=== PATIENT | male | born 1995 | race Hispanic/Latino ===

== ENCOUNTER 2017-08-13 15:11 | Inpatient (IN) | payer SELFPAY ==
[~2017-08-13] VITALS: Ht 165.1 cm; Wt 70.2 kg
[2017-08-13 15:33] LABS: HEMATOCRIT 43.1 % (38.0-50.0); HEMOGLOBIN 14.7 G/DL (12.5-16.6); MCH 28.4 PG (29.0-34.0); MCHC 34.1 G/DL (30.0-36.0); MCV 83.4 FL (86-99); PLATELET COUNT 240 K/uL (156-360); RBC DIS.WIDTH-CV 13.1 % (11.8-14.6); RBC DIS.WIDTH-SD 39.8 % (39-53); RED BLOOD COUNT 5.17 M/uL (4.00-5.50); WHITE BLOOD COUNT 7.3 K/uL (4.1-10.2)
[2017-08-13 15:43] LABS: CHLORIDE 108 mEq/L (99-109); POTASSIUM 3.9 mEq/L (3.7-5.4); SODIUM 144 mEq/L (136-147)
[2017-08-13 15:44] LABS: GLUCOSE 100 mg/dL (70-99)
[2017-08-13 15:48] LABS: CREATININE 0.8 mg/dL (0.6-1.3)
[2017-08-13 15:49] LABS: UREA NITROGEN (BUN) 16 mg/dL (9-23)
[2017-08-13 15:51] LABS: GFR ESTIMATE (CALCULATED) > 59 mL/min/ (58.99-99999)
[2017-08-13 16:31] LABS: APPEARANCE CLOUDY ((CLEAR)); BILIRUBIN NEGATIVE; BLOOD NEGATIVE; COLOR YELLOW ((YELLOW)); GLUCOSE (STRIP) NEGATIVE; KETONES NEGATIVE; LEUKOCYTES NEGATIVE; NITRITE NEGATIVE; PROTEIN (STRIP) NEGATIVE
[2017-08-13 16:46] LABS: COCAINE NEGATIVE (150 ng/mL); METHAMPHETAMINE NEGATIVE (500 ng/mL); PHENCYCLIDINE NEGATIVE (25 ng/mL); THC CANNABINOIDS NEGATIVE (50 ng/mL)
[2017-08-13 16:47] LABS: AMPHETAMINE NEGATIVE (500 ng/mL); BARBITURATES NEGATIVE (200 ng/mL); BENZODIAZEPINES NEGATIVE (150 ng/mL); BUPRENORPHINE NEGATIVE (10 ng/mL); METHADONE NEGATIVE (200 ng/mL); OPIATES (MORPHINE) NEGATIVE (100 ng/mL); OXYCODONE NEGATIVE (100 ng/mL); PROPOXYPHENE NEGATIVE (300 ng/mL); TRICYCLIC ANTIDEPRESSANTS NEGATIVE (300 ng/mL)
[2017-08-13 18:01] VITALS: BP 117/61
[2017-08-13 18:08] VITALS: BP 117/61
[2017-08-13 18:18] LABS: AMORPHOUS PHOSPHATE CRYSTALS 3+; BACTERIA NONE SEEN /HPF; EPITHELIAL CELLS NONE SEEN /HPF; MUCUS NONE SEEN /LPF; RED BLOOD CELLS NONE SEEN /HPF (0-5); WHITE BLOOD CELLS NONE SEEN /HPF (0-5)
[2017-08-14 07:53] VITALS: BP 107/52
[2017-08-14 15:43] VITALS: BP 114/58
[2017-08-15 08:04] VITALS: BP 108/53
[2017-08-15 16:06] VITALS: BP 122/60
[2017-08-16 08:15] VITALS: BP 113/49
[2017-08-16 16:00] VITALS: BP 101/56
[2017-08-17 08:07] VITALS: BP 111/54
[2017-08-17] MEDS ORDERED: RISPERDAL2 MG PO (10:40)
== END 2017-08-17 12:19 | disposition home or self-care (01) | DRG 885 ==
LOC: EME 15:11 → EDOF 15:50 → 1WEST 15:50 → ENRESERV 17:56 → 1WEST 17:56
PROVIDERS: Nurse Practitioner Family
DX: F23 Brief psychotic disorder (principal); Z81.8 Family history of other mental and behavioral disorders
CPT/HCPCS: 80048; 81003; 85027; 90837; 97150 GO; 97166 GO; 99281; 99284

== ENCOUNTER 2017-10-22 17:36 | Emergency (ER) | payer SELFPAY ==
[~2017-10-22] VITALS: Ht 165.1 cm; Wt 68.0 kg
[~2017-10-22 17:36] MED LIST: RISPERDAL2 MG PO
[2017-10-22 19:43] LABS: HEMATOCRIT 45.9 % (38.0-50.0); MCH 28.7 PG (29.0-34.0); MCHC 34.9 G/DL (30.0-36.0); MCV 82.4 FL (86-99); PLATELET COUNT 245 K/uL (156-360); RBC DIS.WIDTH-CV 12.6 % (11.8-14.6); RBC DIS.WIDTH-SD 37.9 % (39-53); RED BLOOD COUNT 5.57 M/uL (4.00-5.50); WHITE BLOOD COUNT 13.6 K/uL (4.1-10.2)
[2017-10-22 19:48] LABS: CHLORIDE 106 mEq/L (99-109); POTASSIUM 4.2 mEq/L (3.7-5.4); SODIUM 140 mEq/L (136-147)
[2017-10-22 19:50] LABS: GLUCOSE 107 mg/dL (70-99)
[2017-10-22 19:53] LABS: SERUM ETHYL ALCOHOL < 10 mg/dL
[2017-10-22 19:54] LABS: CREATININE 1.1 mg/dL (0.6-1.3); GFR ESTIMATE (CALCULATED) > 59 mL/min/ (58.99-99999)
[2017-10-22 19:55] LABS: UREA NITROGEN (BUN) 14 mg/dL (9-23)
[2017-10-22 20:04] LABS: AMPHETAMINE NEGATIVE (500 ng/mL); BARBITURATES NEGATIVE (200 ng/mL); BENZODIAZEPINES NEGATIVE (150 ng/mL); BUPRENORPHINE NEGATIVE (10 ng/mL); COCAINE NEGATIVE (150 ng/mL); METHADONE NEGATIVE (200 ng/mL); METHAMPHETAMINE NEGATIVE (500 ng/mL); OPIATES (MORPHINE) NEGATIVE (100 ng/mL); OXYCODONE NEGATIVE (100 ng/mL); PHENCYCLIDINE NEGATIVE (25 ng/mL); PROPOXYPHENE NEGATIVE (300 ng/mL); THC CANNABINOIDS NEGATIVE (50 ng/mL); TRICYCLIC ANTIDEPRESSANTS NEGATIVE (300 ng/mL)
[2017-10-23 00:30] VITALS: BP 126/70
== END 2017-10-23 00:35 | disposition home or self-care (01) ==
LOC: EME 17:36
DX: F29 Unspecified psychosis not due to a substance or known physiological condition (principal); Z04.6 Encounter for general psychiatric examination, requested by authority; J45.909 Unspecified asthma, uncomplicated; F25.9 Schizoaffective disorder, unspecified; Z63.9 Problem related to primary support group, unspecified
CPT/HCPCS: 80048; 85027; 90837; 99281; 99285; G0480

== ENCOUNTER 2017-11-17 17:14 | Inpatient (IN) | payer OTHER ==
[~2017-11-17] VITALS: Ht 165.1 cm; Wt 76.0 kg
[2017-11-17 18:54] LABS: HEMATOCRIT 39.7 % (38.0-50.0); MCH 28.8 PG (29.0-34.0); MCV 82.4 FL (86-99); PLATELET COUNT 186 K/uL (156-360); RBC DIS.WIDTH-CV 12.6 % (11.8-14.6); RED BLOOD COUNT 4.82 M/uL (4.00-5.50); WHITE BLOOD COUNT 10.3 K/uL (4.1-10.2)
[2017-11-17 18:55] LABS: CHLORIDE 104 mEq/L (99-109); POTASSIUM 3.4 mEq/L (3.7-5.4)
[2017-11-17 18:56] LABS: SODIUM 137 mEq/L (136-147)
[2017-11-17 18:57] LABS: GLUCOSE 350 mg/dL (70-99)
[2017-11-17 18:59] LABS: HEMOGLOBIN 13.9 G/DL (12.5-16.6)
[2017-11-17 19:01] LABS: CREATININE 1.2 mg/dL (0.6-1.3); GFR ESTIMATE (CALCULATED) > 59 mL/min/ (58.99-99999)
[2017-11-17 19:02] LABS: UREA NITROGEN (BUN) 12 mg/dL (9-23)
[2017-11-17 19:09] LABS: TROP-I INTERPRETATION NEGATIVE; TROPONIN-I < 0.01 ng/mL (0.0-0.30)
[2017-11-17 21:07] VITALS: BP 132/69
[2017-11-17 21:09] VITALS: BP 132/69
[2017-11-17] MEDS ORDERED: [UNRECOGNIZED DRUG - OTHER] PO (21:16)
[2017-11-17 22:00] VITALS: BP 121/64
[2017-11-17 23:00] VITALS: BP 109/58
[2017-11-18] VITALS (13 sets, daily range): BP systolic 103–141; BP diastolic 47–69
[2017-11-18 05:23] LABS: HEMATOCRIT 39.5 % (38.0-50.0); HEMOGLOBIN 13.8 G/DL (12.5-16.6); MCH 28.7 PG (29.0-34.0); MCHC 34.9 G/DL (30.0-36.0); MCV 82.1 FL (86-99); PLATELET COUNT 207 K/uL (156-360); RBC DIS.WIDTH-CV 12.9 % (11.8-14.6); RBC DIS.WIDTH-SD 38.2 % (39-53); RED BLOOD COUNT 4.81 M/uL (4.00-5.50); WHITE BLOOD COUNT 9.3 K/uL (4.1-10.2)
[2017-11-18 11:08] LABS: CHLORIDE 108 MEQ/L (99-109); GFR ESTIMATE (CALCULATED) > 59 mL/min/ (58.99-99999); SODIUM 139 MEQ/L (136-147); UREA NITROGEN (BUN) 12 mg/dL (9-23)
[2017-11-18 11:10] LABS: CREATININE 0.7 MG/DL (0.6-1.3); GLUCOSE 124 mg/dL (70-99)
[2017-11-19 04:00] VITALS: BP 113/61
[2017-11-19 07:13] VITALS: BP 101/52
[2017-11-19] MEDS ORDERED: MEDROL DOSEPAK4 MG PO (12:02)
[2017-11-19] MEDS ORDERED: BENADRYL25 MG PO (12:03)
== END 2017-11-19 14:10 | disposition home or self-care (01) | DRG 916 ==
LOC: EME 17:14 → EDOF 19:59 → 4WEST 19:59 → ENRESERV 20:01 → 4WEST 21:03 → ENRESERV 11-18 10:12 → 5SOUTH 11-18 11:35
PROVIDERS: Emergency Medicine; Specialist; Surgery
DX: T78.3XXA Angioneurotic edema, initial encounter (principal); R13.10 Dysphagia, unspecified; R06.89 Other abnormalities of breathing; R00.0 Tachycardia, unspecified; T43.595A Adverse effect of other antipsychotics and neuroleptics, initial encounter; R73.9 Hyperglycemia, unspecified; T38.0X5A Adverse effect of glucocorticoids and synthetic analogues, initial encounter; T44.5X5A Adverse effect of predominantly beta-adrenoreceptor agonists, initial encounter; F29 Unspecified psychosis not due to a substance or known physiological condition; E87.6 Hypokalemia; J45.909 Unspecified asthma, uncomplicated; Z81.8 Family history of other mental and behavioral disorders; Z83.3 Family history of diabetes mellitus
CPT/HCPCS: 80048; 84484; 85027; 87641; 93005; 99281; 99285; J1100; J1200; J7030; S0028